=== PATIENT | male | born 1975 | race Caucasian/White ===

== ENCOUNTER 2016-06-30 08:44 | Emergency (ER) | payer OTHER ==
[~2016-06-30] VITALS: Ht 170.2 cm; Wt 81.6 kg
[2016-06-30 08:44] VITALS: BP 134/93
[2016-06-30] MEDS ORDERED: diphenhydrAMINE HCL 25 MG CAPSULE ONE (09:04)
[2016-06-30] MEDS ORDERED: predniSONE 20 MG TABLET ONE (09:04)
[2016-06-30] MEDS ORDERED: predniSONE 20 MG TABLET PO ONE (09:30)
[2016-06-30] MEDS ORDERED: diphenhydrAMINE HCL ELIX 25 MG/10 ML UDC PO ONE (09:30)
== END 2016-06-30 09:31 | disposition home or self-care (01) ==
LOC: ER 08:48
DX: T78.40XA Allergy, unspecified, initial encounter (principal); F17.200 Nicotine dependence, unspecified, uncomplicated; X58.XXXA Exposure to other specified factors, initial encounter
CPT/HCPCS: 99283; A4606; J7512; Q0163; Z7610

== ENCOUNTER 2018-06-18 23:15 | Emergency (ER) | payer OTHER ==
[~2018-06-18] VITALS: Ht 170.2 cm; Wt 83.9 kg
--- NOTE | 2018-06-18 23:51 | NUR ---
URINE COLLECTED AND SENT TO LAB
--- NOTE | 2018-06-18 23:55 | NUR ---
PT AMBULATED TO ER #2 WITH A STEADY GAIT. PT WAS PLACED ON THE MONITOR AND CONTINUOUS PULSE OX. PT'S RESP ARE EVEN AND UNLABORED. PT WILL CONTINUE TO BE MONITORED.
[2018-06-19] MEDS ORDERED: ONDANSETRON HCL/PF 4 MG/2 ML VIAL ONE (00:28)
[2018-06-19] MEDS ORDERED: FAMOTIDINE/PF INJ 20 MG/2 ML VIAL IV ONE (00:28)
[2018-06-19] MEDS: IV NS 0.9% 1,000 ML BAG IV ONE (00:35)
[2018-06-19] MEDS: ONDANSETRON HCL/PF 4 MG/2 ML VIAL IVP ONE (00:35)
--- NOTE | 2018-06-19 00:35 | NUR ---
IV INITIATED RIGHT AC 18G. LABS DRAWN FROM SITE. ENDOSCOPY NURSE AT BEDSIDE FOR COLLECTION. IV INTACT AND PATENT, PT MEDICATED PER MD ORDER
[2018-06-19] MEDS: FAMOTIDINE/PF INJ 20 MG/2 ML VIAL IV ONE (00:37)
[2018-06-19 00:41] LABS: BASOPHILS # (AUTO) 0.1 /CMM (0.0-0.2); BASOPHILS % (AUTO) 1.7 % (0.0-2.0); EOSINOPHILS % (AUTO) 1.4 % (0.0-6.0); HEMATOCRIT 43 % (39-51); HEMOGLOBIN 14.8 g/dL (13.5-17.5); LYMPHOCYTES # (AUTO) 2.2 /CMM (0.8-4.8); LYMPHOCYTES % (AUTO) 39.7 % (20.0-44.0); MEAN CORPUSCULAR HGB CONC 34 g/dl (31.0-36.0); MEAN CORPUSCULAR VOLUME 91 fL (80-96); MONOCYTES # (AUTO) 0.5 /CMM (0.1-1.30); MONOCYTES % (AUTO) 8.4 % (2.0-12.0); NEUTROPHILS # (AUTO) 2.7 /CMM (1.8-8.9); NEUTROPHILS % (AUTO) 48.8 % (43.0-81.0); PLATELET COUNT (AUTO) 284 /CMM (150-450); RED BLOOD CELL COUNT(AUTO) 4.79 MIL/uL (4.5-6.0); WHITE BLOOD COUNT (AUTO) 5.5 K/uL (4.3-11.0)
[2018-06-19 00:48] LABS: CALCIUM, SERUM 9.1 mg/dL (8.5-10.1); CARBON DIOXIDE 27 mmol/L (21-32); CHLORIDE 100 mmol/L (98-107); GLUCOSE 102 mg/dL (74-106); POTASSIUM 3.6 mmol/L (3.5-5.1); SODIUM SERUM 136 mmol/L (136-145); UREA NITROGEN, BLOOD 14 mg/dL (7-18)
[2018-06-19 00:55] LABS: ALANINE AMINOTRANSFERASE 25 U/L (12-78); ALBUMIN 4.1 g/dL (3.4-5.0); ALKALINE PHOSPHATASE 71 U/L (46-116); ASPARTATE AMINOTRANSFERASE 16 U/L (15-37); BILIRUBIN,DIRECT 0.1 mg/dL (0.0-0.2); BILIRUBIN,TOTAL 0.2 mg/dL (0.2-1.0); LIPASE 178 U/L (73-393); TOTAL PROTEIN, SERUM 7.6 g/dL (6.4-8.2)
--- NOTE | 2018-06-19 00:55 | NUR ---
EKG IN PROGRESS.
[2018-06-19] MEDS: DIATR MEGLU/DIATRIZOATE SODIUM 120 ML BOTTLE (GASTROGRAPHIN) PO ONE (01:01)
--- NOTE | 2018-06-19 01:04 | NUR ---
BROUGHT BY RADIOLOGY FOR CT
[2018-06-19] MEDS ORDERED: CT SWABBABLE VALVE TRANS SET 1 EA INFUS.SET MC ONE (01:05)
[2018-06-19] MEDS ORDERED: IV NS 0.9% 250 ML IV ONE (01:05)
[2018-06-19] MEDS ORDERED: IOHEXOL-300 100 ML VIAL IV ONE (01:05)
--- NOTE | 2018-06-19 02:52 | NUR ---
PT APPEARS TO BE RESTING COMFORTABLY WITH NO S/S OF PAIN OR DISTRESS.
--- NOTE | 2018-06-19 03:23 | NUR ---
CALLED JENNIFER RE: CT AND CXR READ.
[2018-06-19 04:07] VITALS: BP 123/87
--- NOTE | 2018-06-19 04:09 | NUR ---
IV removed. Catheter intact and site benign. Pressure and 4x4 applied to site. No bleeding noted.Patient discharged to home in stable condition. Written and verbal after care instructions given. Patient verbalizes understanding of instruction. PT'S FRIEND IS DRIVING PT HOME. VSS.
== END 2018-06-19 03:50 | disposition home or self-care (01) ==
LOC: ER 23:20
DX: R10.31 Right lower quadrant pain (principal); F17.200 Nicotine dependence, unspecified, uncomplicated; Z98.890 Other specified postprocedural states
CPT/HCPCS: 36415; 71045; 74177; 80048; 80076; 83605; 83690; 84484; 85025; 85730; 86140; 93005; 96374; 96375; 99284; J2405; J3490; J7030; J7050; Q9963; Q9967

== ENCOUNTER 2021-07-02 17:28 | Emergency (ER) | payer OTHER ==
--- NOTE | 2021-07-02 18:49 | NUR ---
CALLED TO TRIAGE, NO RESPONSE
--- NOTE | 2021-07-02 19:10 | NUR ---
CALLED TO TRIAGE ONCE AGAIN, STILL NO RESPONSE. NOT IN WAITING ROOM OR OUTSIDE
== END 2021-07-02 19:54 | disposition left against medical advice (07) ==
LOC: ER 17:43
DX: Z53.21 Procedure and treatment not carried out due to patient leaving prior to being seen by health care provider (principal)